=== PATIENT | female | born 1945 | race Caucasian/White ===

== ENCOUNTER → 2020-12-19 12:37 | Outpatient (CLI) | payer MEDICARE, SELFPAY ==
--- NOTE | ~2020-12-19 | MM_ITS ---
EXAMINATION: MM screening [facility] HISTORY: Screening TECHNIQUE: Craniocaudal and mediolateral oblique 3-D tomosynthesis images were obtained and synthetic 2-D images were generated. CAD analysis was submitted and interpreted. COMPARISON: Comparison to multiple prior studies sequentially, with oldest reviewed study dated 05/28. BREAST PARENCHYMAL COMPOSITION: There are scattered areas of fibroglandular density. FINDINGS: There is no evidence of suspicious mass, calcification, or architectural distortion to sugg est malignancy in either breast. There has been no suspicious interval change. IMPRESSION: 1. No mammographic evidence of malignancy. 2. Recommend routine screening mammography in one year. BI-RADS Category 1: Negative Reviewed, dictated and finalized at location A.
== END ==
PROVIDERS: PCP Family Medicine; Visit Provider Family Medicine
DX: Z12.31 Encounter for screening mammogram for malignant neoplasm of breast (principal)
CPT/HCPCS: 77063; 77067

== ENCOUNTER 2021-11-25 13:00 | Outpatient (CLI) | payer MEDICARE, SELFPAY | END 2021-11-25 13:01 | disposition home or self-care (01) | LOC: ANHBWCAUD 13:05 | PROVIDERS: PCP Family Medicine | DX: H90.3 Sensorineural hearing loss, bilateral (principal) | CPT/HCPCS: 92557; 92567 ==

== ENCOUNTER 2022-01-06 11:00 | Outpatient (RCR) | payer MEDICARE, SELFPAY | END 2022-03-03 23:59 | disposition home or self-care (01) | LOC: ANHBWCAUD 11:00 | PROVIDERS: PCP Family Medicine; Visit Provider Family Medicine | DX: Z46.1 Encounter for fitting and adjustment of hearing aid (principal) | CPT/HCPCS: 99199; V5261 ==

== ENCOUNTER → 2022-04-09 09:50 | Outpatient (CLI) | payer MEDICARE, SELFPAY ==
--- NOTE | ~2022-04-09 | MM_ITS ---
EXAMINATION: MM screening [facility] [place] HISTORY: Screening mammogram TECHNIQUE: Craniocaudal and mediolateral oblique 3-D tomosynthesis images were obtained and synthetic 2-D images were generated. CAD analysis was submitted and interpreted. COMPARISON: 12/19/2020, 07/14/2018, 06/24/2017 BREAST PARENCHYMAL COMPOSITION: There are scattered areas of fibroglandular density. FINDINGS: No suspicious mass, calcification, or architectural distortion are identified in either joaquim ast to suggest malignancy. There has been no suspicious interval change. IMPRESSION: 1. No mammographic evidence of malignancy. 2. Recommend routine screening mammography in one year. BI-RADS Category 1: Negative Reviewed, dictated and finalized at location A. OPERATOR
== END ==
PROVIDERS: PCP Family Medicine; Visit Provider Family Medicine
DX: Z12.31 Encounter for screening mammogram for malignant neoplasm of breast (principal)
CPT/HCPCS: 77063; 77067

== ENCOUNTER 2022-10-08 19:31 | Emergency (ER) | payer MEDICARE, SELFPAY ==
--- NOTE | 2022-10-08 19:46 | PC.NURSE ---
Patient arrives in triage room and states she fell short time ago and hit top of head and forehead on kitchen cabinet. States her father of a brain bleed and wants us to tell her she doesn't have one. Explained to patient that we are unable to do this without a Cat Scan. Patient decided to go to [facility] and not to stay here and be charged twice . Patient spoke with daughter and friend, who will drive her to the hospital. Patient is alert, no LOC. No bleeding to skull but does have bruising to right forehead. Also with pain to right shoulder, left knee and bilateral hands. Patient left before triage in stable condition with friend.
== END 2022-10-08 19:55 | disposition left against medical advice (07) ==
LOC: EXPBETH 19:35
PROVIDERS: Emergency Provider Nurse Practitioner Family; PCP Family Medicine
DX: Z53.21 Procedure and treatment not carried out due to patient leaving prior to being seen by health care provider (principal)
CPT/HCPCS: 99199

== ENCOUNTER → 2023-05-17 10:48 | Outpatient (CLI) | payer MEDICARE, SELFPAY ==
--- NOTE | ~2023-05-17 | DEXA_ITS ---
Bone Density Report Name: VALERIE MAGAÑA Age: 78 Sex: Female Ethnicity: White Date of : 1945 Indication: osteopenia; height loss; prior fracture; hysterectomy; postmenopausal Referring Provider: ZULAY, CHRISTI Stahl Study: Bone densitometry was performed. Exam Date: May 17, 2023 Accession number: [id number] Bone Density: Region BMD T-score Z-score Classification AP Spine (L1-L4) 0.945 -0.9 1.6 Normal Femoral Neck (Left) 0.634 -1.9 0.2 Osteopenia Total Hip (Left) 0.745 -1.6 0.3 Osteopenia Femoral Neck (Right) 0.571 -2.5 -0.3 Osteoporosis Total Hip (Right) 0.624 -2.6 -0.7 Osteoporosis Total Hip Mean 0.685 -2.1 -0.2 Osteopenia World Health Organization criteria for BMD impression classify patients as: Normal (T-score at or above -1.0), Osteopenia (T-score between -1.0 and -2.5), or Osteoporosis (T-score at or below -2.5). 10-year Fracture Risk: FRAX not reported because: Some T-score for Spine Total or Hip Total or Femoral Neck at or below -2.5 Previous Exams: Region Exam Age BMD T-score BMD Change BMD Change Date g/cm2 vs Baseline vs Previous AP Spine(L1-L4) 05/17/2023 78 0.945 -0.9 0.058* 0.064 10/03/2018 73 0.880 -1.5 -0.007 0.028 07/20/2013 68 0.852 -1.8 -0.035* -0.035* 07/04/2010 65 0.887 -1.5 Total Hip(Left) 05/17/2023 78 0.745 -1.6 -0.153* -0.056 10/03/2018 73 0.801 -1.2 -0.098 -0.065 07/20/2013 68 0.865 -0.6 -0.033* -0.033* 07/04/2010 65 0.898 -0.4 Total Hip(Right) 05/17/2023 78 0.624 -2.6 -0.192* -0.088 10/03/2018 73 0.712 -1.9 -0.104 -0.094 07/20/2013 68 0.806 -1.1 -0.010 -0.010 07/04/2010 65 0.816 -1.0 *Denotes significance at 95% confidence level, LSC for AP Spine = 0.022 g/cm2, LSC for Total Hip = 0.027 g/cm2 Clinical Information Provided by Patient: Has had a low trauma fracture Has used the following medications: Vitamin D Has the following medical conditions: Hysterectomy Patient maximum height was 63 Menopause Age: 56 Does not regularly consume dairy products Drinks caffeinated beverages Onset of menses at age 13 Number of children 1 Impression: The patient has established osteoporosis, based on the Right Total Hip T-score and the existence of a prior fracture. The patient has risk factors, including: previous fra
--- NOTE | ~2023-05-17 | MM_ITS ---
EXAMINATION: MM screening [facility] [place] HISTORY: Screening mammogram TECHNIQUE: Craniocaudal and mediolateral oblique 3-D tomosynthesis images were obtained and synthetic 2-D images were generated. CAD analysis was submitted and interpreted. COMPARISON: 04/09/2022, 12/19/2020, 07/14/2018 BREAST PARENCHYMAL COMPOSITION: There are scattered areas of fibroglandular density. FINDINGS: No suspicious mass, calcification, or architectural distortion are identified in either joaquim ast to suggest malignancy. There has been no suspicious interval change. IMPRESSION: 1. No mammographic evidence of malignancy. 2. Recommend routine screening mammography in one year. BI-RADS Category 1: Negative Reviewed, dictated and finalized at location A. OR RESEARCH EXECUTIVE
== END ==
PROVIDERS: PCP Family Medicine; Visit Provider Family Medicine
DX: Z12.31 Encounter for screening mammogram for malignant neoplasm of breast (principal); Z78.0 Asymptomatic menopausal state; M85.852 Other specified disorders of bone density and structure, left thigh; M81.0 Age-related osteoporosis without current pathological fracture; M85.851 Other specified disorders of bone density and structure, right thigh
CPT/HCPCS: 77063; 77067; 77080

== ENCOUNTER 2023-08-10 10:52 | Outpatient (CLI) | payer MEDICARE, SELFPAY | END 2023-08-10 10:53 | disposition home or self-care (01) | LOC: ANHBWCAUD 10:52 | PROVIDERS: PCP Family Medicine; Visit Provider Family Medicine | DX: H90.3 Sensorineural hearing loss, bilateral (principal); H93.13 Tinnitus, bilateral | CPT/HCPCS: 92557; 92567 ==

== ENCOUNTER 2024-06-14 13:47 | Outpatient (CLI) | payer MEDICARE, SELFPAY ==
--- NOTE | ~2024-06-14 | MM_ITS ---
EXAMINATION: MM screening [facility] [place] HISTORY: Screening mammogram TECHNIQUE: Craniocaudal and mediolateral oblique 3-D tomosynthesis images were obtained and synthetic 2-D images were generated. CAD analysis was submitted and interpreted. COMPARISON: 05/17/2023, 04/09/2022, 12/19/2020 BREAST PARENCHYMAL COMPOSITION:Not Dense. There are scattered areas of fibroglandular density. FINDINGS: No suspicious mass, calcification, or architectural distortion are identified in either joaquim ast to suggest malignancy. There has been no suspicious interval change. IMPRESSION: No mammographic evidence of malignancy. Recommend routine screening mammography in one year. BI-RADS Category 1: Negative Reviewed, dictated and finalized at location .
== END 2024-06-14 13:48 | disposition home or self-care (01) ==
LOC: MICIMG 13:49
PROVIDERS: PCP Family Medicine; Visit Provider Family Medicine
DX: Z12.31 Encounter for screening mammogram for malignant neoplasm of breast (principal)
CPT/HCPCS: 77063; 77067